=== PATIENT | female | born 2000 | race Hispanic/Latino ===

== ENCOUNTER 2021-09-03 10:38 | Emergency (ER) | payer SELFPAY ==
[~2021-09-03] VITALS: Ht 152.4 cm; Wt 65.0 kg
[2021-09-03] VITALS (7 sets, daily range): BP systolic 84–107; BP diastolic 44–74
[2021-09-03 11:29] LABS: URINE BILIRUBIN - DIPSTICK NEGATIVE (NEGATIVE); URINE BLOOD DIPSTICK NEGATIVE (NEGATIVE); URINE COLOR YELLOW; URINE GLUCOSE - DIPSTICK NEGATIVE (NEGATIVE); URINE KETONE NEGATIVE (NEGATIVE); URINE LEUK ESTERASE NEGATIVE (NEGATIVE); URINE PROTEIN - DIPSTICK NEGATIVE (NEG-TRACE); URINE SPECIFIC GRAVITY 1.025; URINE UROBILINOGEN - DIPSTICK 0.2 E.U./dL (0.2)
[2021-09-03 11:34] LABS: URINE NITRITE - DIPSTICK POSITIVE (Negative)
[2021-09-03 11:46] LABS: URINE BACTERIA MANY hpf; URINE RBC 0-2 RBC/hpf (0-5); URINE SQUAMOUS EPITHELIAL CELL MANY EPI/hpf (0-FEW)
[2021-09-03 13:05] LABS: HEMATOCRIT 31.4 % (37.0-47.0); HEMOGLOBIN 9.6 g/dl (12.0-16.0); IMMATURE GRANULOCYTES 0.1 % (0.0-5.0); MEAN CELL VOLUME 79.9 fL CALC (80.0-100.0); MEAN CORPUSCULAR HGB 24.4 pG CALC (26.0-32.0); MEAN CORPUSCULAR HGB CONC 30.6 g/dL CAL (32.0-36.0); NEUT# 4.39 thou/uL (2.00-7.15); RED BLOOD COUNT 3.93 mill/uL (4.20-5.60)
[2021-09-03 13:23] LABS: ALBUMIN 3.9 g/dL (3.2-5.0); ALKALINE PHOSPHATASE 68 u/l (38-126); ANION GAP 10 (6-22 (CALC)); BILIRUBIN, TOTAL 0.3 mg/dL (0.0-1.4); BUN 14 mg/dL (7-17); BUN/CREATININE RATIO 24 (12-20 (CALC)); CARBON DIOXIDE 28 mmol/l (22-30); CHLORIDE 104 mmol/l (95-108); CREATININE 0.6 mg/dL (0.5-1.0); GFR > 60 ML/MIN (>=60 (CALC)); GFR FOR AFR.AMER. > 60 ML/MIN (>=60 (CALC)); LIPASE 77 u/l (23-300); POTASSIUM 3.7 mmol/l (3.5-5.1); SGOT/AST 20 u/l (14-36); SODIUM 138 mmol/l (137-146); TOTAL PROTEIN 6.6 g/dL (6.3-8.2)
[2021-09-03] MEDS ORDERED: METRONIDAZOLE500 MG PO (14:25)
== END 2021-09-03 14:40 | disposition home or self-care (01) | DRG 759 ==
LOC: ED 10:38
PROVIDERS: Internal Medicine; Nurse Practitioner
DX: A64 Unspecified sexually transmitted disease (principal); N76.0 Acute vaginitis; R82.71 Bacteriuria
CPT/HCPCS: J0561

== ENCOUNTER 2023-01-15 17:57 | Emergency (ER) | payer SELFPAY ==
[2023-01-15] VITALS (8 sets, daily range): BP systolic 92–113; BP diastolic 55–66
[~2023-01-15] VITALS: Ht 152.4 cm; Wt 60.7 kg
[~2023-01-15 17:57] MED LIST: METRONIDAZOLE500 MG PO
[2023-01-15 19:57] LABS: BASO% 0.5 % (0-3); EOS% 1.5 % (0-8); HEMATOCRIT 30.9 % (37.0-47.0); IMMATURE GRANULOCYTES 0.2 % (0.0-5.0); LYMPH% 9.2 % (15-41); MEAN CELL VOLUME 76.7 fL CALC (80.0-100.0); MEAN CORPUSCULAR HGB 24.8 pG CALC (26.0-32.0); MEAN CORPUSCULAR HGB CONC 32.4 g/dL CAL (32.0-36.0); MONO% 6.9 % (2-13); NEUT# 8.1 thou/uL (2.00-7.15); NEUT% 81.7 % (42-76); RED BLOOD COUNT 4.03 mill/uL (4.20-5.60); RED CELL DISTRI WIDTH 15.8 % (11.5-15.5)
== END 2023-01-15 20:40 | disposition home or self-care (01) | DRG 866 ==
LOC: ED 17:57
PROVIDERS: Family Medicine
DX: B34.9 Viral infection, unspecified (principal); Z20.822 Contact with and (suspected) exposure to COVID-19